=== PATIENT | female | born 1965 | race African-American/Black ===

== ENCOUNTER 2018-06-30 19:02 | Emergency (ER) | payer MEDICAID ==
[~2018-06-30] VITALS: Ht 170.2 cm; Wt 68.0 kg
[2018-06-30 19:30] VITALS: BP 143/89
[2018-06-30] MEDS ORDERED: Meclizine 25mg tab ORAL ONE (19:30)
[2018-06-30] MEDS ORDERED: MECLIZINE HCL25 MG ORAL (20:12)
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
--- NOTE | 2018-07-01 11:49 | Diagnostic Imaging Report ---
Indication: Pain and dizziness Technique: Continuous helical CT scanning of the head was performed without intravenous contrast material. Axial and coronal 5 mm sections were generated. Radiation dose was minimized using automated exposure control Dose: Total Dose Length Product - DLP 1351.[address] Dose Index - CTDIvol(s) 70.38 mGy. Comparison: none Findings: The ventricular system is normal in size and configuration. There is no shift of midline structures. No abnormal extra-axial fluid collections are noted. There is no evidence of intracerebral bleeding. No other abnormal high or low density areas are noted within the brain. Intact calvarium. Mastoids are clear. Visualized orbits and sinuses are unremarkable. Impression: Normal CT scan of the head without contrast material. This agrees with the preliminary interpretation provided overnight by Dr. Arora The CT scanner at [facility] is accredited by the [employer] and the scans are performed using protocols designed to limit radiation exposure to as low as reasonably achievable to attain images of sufficient resolution adequate for diagnostic evaluation.
== END 2018-06-30 20:26 | disposition home or self-care (01) ==
LOC: EMR 19:40
DX: S09.8XXA Other specified injuries of head, initial encounter (principal); R51 Headache; R42 Dizziness and giddiness; Y09 Assault by unspecified means
CPT/HCPCS: 70450; 99283